=== PATIENT | female | born 1995 | race Caucasian/White ===

== ENCOUNTER 2019-12-01 18:40 | Outpatient (CLI) | payer OTHER ==
[2019-12-01] MEDS ORDERED: HYDROXYZINE PAMOATE 50 MG CAPSULE PO ONE (19:15)
[2019-12-01] MEDS ORDERED: RINGERS SOLUTION,LACTATED 1,000 ML IV ONE (19:15)
[2019-12-01] MEDS ORDERED: HYDROXYZINE PAMOATE 50 MG CAPSULE ONE (19:17)
[2019-12-01] MEDS ORDERED: TERBUTALINE SULFATE INJ/PF 1 MG/1 ML SDV ONE (20:38)
[2019-12-01] MEDS ORDERED: TERBUTALINE SULFATE INJ/PF 1 MG/1 ML SDV SUBCUT ONE (20:38)
[2019-12-01 21:24] LABS: APPEARANCE,URINE CLEAR; BILIRUBIN,URINE NEGATIVE (NEGATIVE); COLOR,URINE YELLOW; GLUCOSE, URINE NEGATIVE (NEGATIVE); KETONES,URINE 80 mg/dL (NEGATIVE); LEUKOCYTE ESTERASE,URINE NEGATIVE (NEGATIVE); NITRITE,URINE NEGATIVE (NEGATIVE); PROTEIN,URINE 30 mg/dL (NEGATIVE); URINE SPECIFIC GRAVITY 1.013
--- NOTE | 2019-12-01 21:43 | Non Stress Test Report ---
Non Stress Test Datetime Report Generated by CPN: 12/01/2019 21:43 DEMOGRAPHIC EGA NST: 34.1 INDICATION Indication for Study (NST) Other: LC- contractions, back pain MONITORING Monitor Explained: Monitor Explained; Test Explained; Patient Verbalized Understanding Time on Monitor: 12/01/2019 18:56 Time off Monitor: 12/01/2019 21:32 NST Duration: 156 NST INTERVENTIONS NST Interventions: PO Hydration; IV Fluids; Meal Given; Reposition Patient Physician Notified NST: Alonzo BABY A: [id number] BABY A Movement : Present Contraction Frequency : 2-10 FHR Baseline : 135 Accelerations : 15X15 Decelerations : None Variability : Moderate 6-25bpm NST Review: Meets Criteria for Reactive NST NST Review and Verified By : Brian Montano RN NST Results: Reactive NST REPORT Report Trigger: Send Report
[2019-12-01 21:50] LABS: URINE AMPHETAMINES SCREEN NEGATIVE; URINE BARBITURATES SCREEN NEGATIVE; URINE BENZODIAZEPINES SCREEN NEGATIVE; URINE COCAINE SCREEN NEGATIVE; URINE MARIJUANA (THC) SCREEN NEGATIVE; URINE METHADONE SCREEN NEGATIVE; URINE PHENCYCLIDINE SCREEN NEGATIVE
== END 2019-12-01 21:39 | disposition home or self-care (01) ==
LOC: LC 18:40
PROVIDERS: ATTEND Student in an Organized Health Care Education/Training Program
DX: O47.03 False labor before 37 completed weeks of gestation, third trimester (principal); Z3A.34 34 weeks gestation of pregnancy
CPT/HCPCS: 59025; 94760; 81001; 80307; J3105

== ENCOUNTER 2019-12-22 20:28 | Outpatient (CLI) | payer OTHER ==
[2019-12-22] MEDS ORDERED: RINGERS SOLUTION,LACTATED 1,000 ML IV ONE (21:01)
[2019-12-22] MEDS ORDERED: RINGERS SOLUTION,LACTATED 1,000 ML IV PRN (21:01)
[2019-12-22 21:43] LABS: APPEARANCE,URINE CLEAR; BILIRUBIN,URINE NEGATIVE (NEGATIVE); COLOR,URINE STRAW; GLUCOSE, URINE 150 mg/dL (NEGATIVE); KETONES,URINE NEGATIVE (NEGATIVE); LEUKOCYTE ESTERASE,URINE NEGATIVE (NEGATIVE); NITRITE,URINE NEGATIVE (NEGATIVE); PROTEIN,URINE NEGATIVE (NEGATIVE); URINE SPECIFIC GRAVITY 1.004; UROBILINOGEN,URINE NEGATIVE mg/dL (<2.0)
[2019-12-22] MEDS ORDERED: TERBUTALINE SULFATE INJ/PF 1 MG/1 ML SDV ONE (21:43)
[2019-12-22 21:58] LABS: URINE AMPHETAMINES SCREEN NEGATIVE; URINE BARBITURATES SCREEN NEGATIVE; URINE BENZODIAZEPINES SCREEN NEGATIVE; URINE COCAINE SCREEN NEGATIVE; URINE MARIJUANA (THC) SCREEN NEGATIVE; URINE METHADONE SCREEN NEGATIVE; URINE PHENCYCLIDINE SCREEN NEGATIVE
[2019-12-22] MEDS ORDERED: TERBUTALINE SULFATE INJ/PF 1 MG/1 ML SDV SUBCUT ONE (22:00)
--- NOTE | 2019-12-22 23:08 | Non Stress Test Report ---
Non Stress Test Datetime Report Generated by CPN: 12/22/2019 23:08 DEMOGRAPHIC EGA NST: 37.1 INDICATION Indication for Study (NST) Other: Gestational age greater than 32 weeks VITAL SIGNS Temperature - NST: 98.1 Pulse - NST: 110 RESP - NST: 17 NBPSYS NST: 125 NBPDIA NST: 76 MONITORING Monitor Explained: Monitor Explained; Test Explained; Patient Verbalized Understanding Time on Monitor: 12/22/2019 20:40 Time off Monitor: 12/22/2019 23:02 NST Duration: 142 NST INTERVENTIONS NST Interventions: PO Hydration; IV Fluids; Reposition Patient Physician Notified NST: DrMark AnthonyRosado BABY A: [id number] BABY A Movement : Present Contraction Frequency : irregular, 2-4 (stopped with terbutaline) FHR Baseline : 135 Accelerations : 15X15 Decelerations : None Variability : Moderate 6-25bpm NST Review: Meets Criteria for Reactive NST NST Review and Verified By : Brian Montano RN NST Results: Reactive NST REPORT Report Trigger: Send Report
== END 2019-12-22 23:09 | disposition home or self-care (01) ==
LOC: LC 20:28
PROVIDERS: ATTEND Student in an Organized Health Care Education/Training Program
PROC: 4A1HXCZ Monitoring of Products of Conception, Cardiac Rate, External Approach (ICD-10-PCS; principal; 2019-12-22)
DX: O47.1 False labor at or after 37 completed weeks of gestation (principal); Z3A.37 37 weeks gestation of pregnancy
CPT/HCPCS: 59025; 81005; 80307; J3105

== ENCOUNTER 2020-01-04 15:28 | Inpatient (IN) | payer OTHER ==
[~2020-01-04 15:28] MED LIST: SUCCINYLCHOLINE CHLORIDE INJ 200 MG/10 ML VIAL ONE
[2020-01-04] MEDS ORDERED: DEXTROSE 5%-LACTATED RINGERS 1,000 ML IV PRN (15:50)
[2020-01-04] MEDS ORDERED: CEFAZOLIN 1 GM/D5W RTU 2 GM/100 ML RTUPB IV ONE (16:02)
[2020-01-04] MEDS ORDERED: CITRIC ACID/SODIUM CITRATE ORAL SOLN 15 ML UDCUP ONE (16:02)
--- NOTE | 2020-01-04 16:16 | Admission Physical ---
Datetime Report Generated by CPN: 01/04/2020 16:16 CURRENT ADMISSION Hx Assessment: The History has been Reviewed and is Current Chief Complaint: Uterine Contractions Indication for Induction: Not Applicable Admit Impression : Term, Intrauterine Admit Impression- Other: Cat 3 strip, lates, absent variability Admit Plan: Initiate Section Protocol ALLERGIES Medication Allergies: Yes Medication Allergies: morphine (12/22/2019) Latex: No Latex Allergies Food Allergies: none Environmental Allergies: none OBSTETRICAL HISTORY EDC: 01/11/2020 00:00 : 1 Para: 0 Term: 0 : 0 SAB: 0 IAB: 0 Ectopic: 0 Livin Cesareans: 0 VBACs: 0 Multiple Births: 0 Gestational Diabetes: No Rh Sensitization: No Incompetent Cervix: No JENNIFER: No Infertility: No ART Treatment: No Uterine Anomaly: No IUGR: No Hx Previous C/S: No Macrosomia: No Hx Loss/Stillborn: No PIH: No Hx : No Placenta Previa/Abruption: No Depression/PP Depression: No PTL/PROM: No Post Hemorrhage: No Obstetrical History Comments: G1: current SEE RECORDS Alcohol: No Marijuana : No Cocaine: No Other Illicit Drugs: No Cigarettes: Never Smoker. 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 Heart Disease: No Hosp/Surgery: Yes Autoimmune Disorder: No Anesthetic Complications: No Kidney Disease: No Abnormal Pap Smear: No Neuro/Epilepsy: No Psychiatric Disorders: No Other Medical Diseases: No Hepatitis/Liver Disease: No Significant Family History: No Varicosities/Phlebitis: No Trauma/Violence : No Thyroid Dysfunction: No Medical History Comments: hypotension, 3 spinal transfusion, total 6 back surgeries, ostomy bag and g-tube in past INFECTIOUS HISTORY Gonorrhea: No Genital Herpes: No Chlamydia: No Tuberculosis: No Syphilis: No Hepatitis: No HIV/AIDS Exposure: No Rash or Viral Illness: No HPV: No PHYSICAL EXAM General: Normal HEENT: Normal Neurologic: Normal Thyroid: Normal Heart: Normal Lungs: Normal Breast: Normal Back: Normal Abdomen: Normal Genitourinary Exam: Normal Extremities: Normal DTRs: Normal Pelvic Type: Adequate Physical Exam Comments: GBS neg Back surgery, L4-S1 fused, 2 rods in back, triangular plate with 3 screws, no spinal or epidural C/S scheduled for 01/07/2020 Hx of illeostomy from complications of back surgery Vital Signs: Reviewed VAGINAL EXAM Dilatation: FT Effacement: 90 Station: 0 MEMBRANES Membranes: Intact FETUS A EGA: 39.0 Monitoring: External US Variability: Absent - Undetectable Accelerations: Absent Decelerations: Late Admit Comment: Admitted to with c/o of uc's q 2 min, placed on monitor, absent variability with late decelerations, IV D5LR started,O2 via mask, Dr. Tipton notified of Cat 3 strip, Dr. Tipton at , C/S called, talked with family, prepearations started for C/S, Dr. Tipton consulted General surgery and anesthesia due to prior back surgery and complications and with adhesions to bowel. Ancef 2 Gms PLANS FOR LABOR AND DELIVERY Labor and Delivery: None Pain Management: Medications Feeding Preference: Breast Benefit of Breast Feed Discussed: Yes Circumcision: N/A INFORMED CONSENT Assignment: Cecilia Tipton MD Signature: with User ID: [email or web address] : with User ID: [email or web address]
[2020-01-04 16:27] LABS: APPEARANCE,URINE CLEAR; BILIRUBIN,URINE NEGATIVE (NEGATIVE); COLOR,URINE YELLOW; GLUCOSE, URINE NEGATIVE (NEGATIVE); KETONES,URINE NEGATIVE (NEGATIVE); LEUKOCYTE ESTERASE,URINE NEGATIVE (NEGATIVE); NITRITE,URINE NEGATIVE (NEGATIVE); PROTEIN,URINE NEGATIVE (NEGATIVE); URINE SPECIFIC GRAVITY 1.005; UROBILINOGEN,URINE NEGATIVE mg/dL (<2.0)
[2020-01-04] MEDS ORDERED: OXYTOCIN 10 UNIT/ML VIAL ONE (16:40)
[2020-01-04] MEDS ORDERED: ONDANSETRON HCL INJ/PF 4 MG/2 ML SDV ONE (16:40)
[2020-01-04] MEDS ORDERED: FENTANYL CITRATE INJ/PF 250 MCG/5 ML AMPULE ONE (16:40)
[2020-01-04] MEDS ORDERED: MIDAZOLAM 2 MG/2 ML INJ ONE (16:40)
[2020-01-04] MEDS ORDERED: MISOPROSTOL 0.2 MG TABLET ONE (16:53)
[2020-01-04] MEDS ORDERED: CARBOPROST TROMETHAMINE INJ 250 MCG/1 ML AMPULE ONE (16:54)
[2020-01-04] MEDS ORDERED: OXYCODONE-ACETAMINOPHEN 5-325 MG TABLET PO PRN ×4 (16:54→17:35)
[2020-01-04] MEDS ORDERED: ONDANSETRON HCL INJ/PF 4 MG/2 ML SDV IV PRN (16:54)
[2020-01-04] MEDS ORDERED: FENTANYL CITRATE INJ/PF 100 MCG/2 ML AMPUL IV PRN ×3 (16:54)
[2020-01-04] MEDS ORDERED: MEPERIDINE HCL/PF INJ 25 MG/1 ML DISP.SYRIN IV PRN (16:54)
[2020-01-04] MEDS ORDERED: PROMETHAZINE HCL INJ 25 MG/1 ML VIAL IV PRN ×3 (16:54→17:35)
[2020-01-04] MEDS ORDERED: METHYLERGONOVINE MALEATE INJ/PF 0.2 MG/1 ML AMPULE ONE (16:54)
[2020-01-04 16:55] LABS: URINE AMPHETAMINES SCREEN NEGATIVE; URINE BARBITURATES SCREEN NEGATIVE; URINE BENZODIAZEPINES SCREEN NEGATIVE; URINE COCAINE SCREEN NEGATIVE; URINE MARIJUANA (THC) SCREEN NEGATIVE; URINE METHADONE SCREEN NEGATIVE; URINE PHENCYCLIDINE SCREEN NEGATIVE
[2020-01-04] MEDS ORDERED: ACETAMINOPHEN 1,000 MG/100 ML RTUPB IV ONE (17:31)
[2020-01-04] MEDS ORDERED: MEASLES,MUMPS&RUBELLA VACC/PF 0.5 ML VIAL SUBCUT PRN (17:35)
[2020-01-04] MEDS ORDERED: DIPH/PERTUSS(ACELL)/TETANUS VAC/PF 0.5 ML SYR (>=10YO) IM PRN (17:35)
[2020-01-04] MEDS ORDERED: ACETAMINOPHEN 325 MG TABLET PO PRN (17:35)
[2020-01-04] MEDS ORDERED: ACETAMINOPHEN 1,000 MG/100 ML RTUPB IV PRN (17:35)
[2020-01-04] MEDS ORDERED: RINGERS SOLUTION,LACTATED 1,000 ML IV PRN (17:35)
[2020-01-04] MEDS ORDERED: OXYTOCIN/NORMAL SALINE 20 UNIT/1,000 ML RTUINJ IV PRN (17:35)
[2020-01-04] MEDS ORDERED: SIMETHICONE 80 MG TAB.CHEW PO PRN (17:35)
[2020-01-04] MEDS ORDERED: HYDROMORPHONE HCL INJ/PF 2 MG/ML AMPULE ONE (17:37)
--- NOTE | 2020-01-04 17:41 | Operative Report ---
Operative Report DATE OF SURGERY: 01/04/20 PREOPERATIVE DIAGNOSIS: IUP at 39 weeks gestation nonreassuring heart ton es multiple previous abdominal surgeries multiple back surgeries with hardware POSTOPERATIVE DIAGNOSIS: Same OPERATION: Primary low transverse hysterotomy section SURGEON: JUDITH PACKER ANESTHESIA: GA COMPLICATIONS: None INTRAOPERATIVE FINDINGS: Female infant cephalic presentation Apgars 1, 6, 7 and 7. Nuchal cord x5 around neck, meconium present, adhesions of the peritoneal cavity. PROCEDURE: PROCEDURE IN DETAIL: The patient was taken to the operating room, prepared and draped in a normal sterile fashion in a supine position with a leftward tilt. A transverse skin incision was made with a scalpel and carried through to the underlying layer of fascia with the same scalpel. The fascia was excised in the midline and extended laterally with Zachariah. The fascia was then dissected from the rectus muscle sharply with Zachariah and the rectus muscle was divided and the peritoneal cavity was entered sharply with the same Metzenbaum. With good visualization of the bladder and the uterus the bladder blade was inserted. The hysterotomy was nicked with a scalpel and extended laterally with surgeon finger fraction. The infant was then delivered atraumatically. The nose and mouth were suctioned with a suction bulb, the cord was clamped and cut and was handed off to awaiting pediatricians. The placenta was removed manually. The uterus was exteriorized and cleared of clots and debris. The hysterotomy was closed with 0 Monocryl in a running, locked fashion. A second layer of the same suture was used to imbricate to ensure hemostasis. The uterus was returned to the abdomen and peritoneal cavity was cleared of clots and debris. The Interceed was placed along the hysterotomy to prevent future adhesions. the rectus muscle and peritoneum were repaired with mattress stitch of 2-0 Chromic. The fascia was closed with 0-Vicryl. The subcutaneous layer was closed with plain catgut and the skin was closed with 4-0 Vicryl. The patient tolerated the procedure well. Sponge, lap, and needle counts correct x2 and the patient was taken to recovery in stable condition.
[2020-01-04 17:45] LABS: ABSOLUTE BASOPHILS # (AUTO) 0.1 10^3/uL (0.0-0.2); ABSOLUTE EOSINOPHILS # (AUTO) 0.1 10^3/uL (0.0-0.6); ABSOLUTE LYMPHOCYTES (AUTO) 1.5 10^3/uL (0.5-4.7); ABSOLUTE MONOCYTES (AUTO) 1.1 10^3/uL (0.1-1.4); ABSOLUTE NEUT (AUTO) 13.4 10^3/uL (1.7-8.2); BASOPHILS % (AUTO) 0.3 % (0-2); EOSINOPHILS % (AUTO) 0.6 % (0-6); HEMATOCRIT 36.9 % (36.0-47.0); HEMOGLOBIN 12.3 g/dL (12.0-15.5); LYMPHOCYTES % (AUTO) 9.3 % (13-45); MEAN CORPUSCULAR HEMOGLOBIN 28.2 pg (27.0-33.4); MEAN CORPUSCULAR HGB CONC 33.4 g/dL (32.0-36.0); MEAN CORPUSCULAR VOLUME 85 fl (80-97); MONOCYTES % (AUTO) 6.6 % (3-13); PLATELET COUNT 249 10^3/uL (150-450); RED BLOOD COUNT 4.37 10^6/uL (3.72-5.28); RED CELL DISTRIBUTION WIDTH 14.6 % (11.5-14.0); SEGMENTED NEUTROPHILS % (AUTO) 83.2 % (42-78); TOTAL CELLS COUNTED % (AUTO) 100 %; WHITE BLOOD COUNT 16.1 10^3/uL (4.0-10.5)
[2020-01-04] MEDS ORDERED: AMPICILLIN SOD/SULBACTAM 3 GM VIAL IV SCH (17:45)
[2020-01-04] MEDS ORDERED: DIPHENHYDRAMINE HCL 50 MG/ML VIAL ONE (17:48)
[2020-01-04] MEDS ORDERED: PROPOFOL INJ 200 MG/20 ML VIAL IV ONE (17:48)
[2020-01-04] MEDS: DIPHENHYDRAMINE HCL 50 MG/ML VIAL IV PRN ×3 (17:48→22:27)
[2020-01-04 17:57] LABS: HEMATOCRIT 34.5 % (36.0-47.0); HEMOGLOBIN 11.6 g/dL (12.0-15.5); MEAN CORPUSCULAR HEMOGLOBIN 28.7 pg (27.0-33.4); MEAN CORPUSCULAR HGB CONC 33.7 g/dL (32.0-36.0); MEAN CORPUSCULAR VOLUME 85 fl (80-97); PLATELET COUNT 277 10^3/uL (150-450); RED BLOOD COUNT 4.06 10^6/uL (3.72-5.28); RED CELL DISTRIBUTION WIDTH 14.8 % (11.5-14.0); WHITE BLOOD COUNT 22.3 10^3/uL (4.0-10.5)
[2020-01-04] MEDS ORDERED: NORMAL SALINE 250 ML IV PRN ×2 (18:08→18:23)
[2020-01-04] MEDS ORDERED: FENTANYL CITRATE INJ/PF 100 MCG/2 ML AMPUL ONE (18:34)
[2020-01-04 18:39] LABS: ALBUMIN 3.2 g/dL (3.5-5.0); ALKALINE PHOSPHATASE 224 U/L (38-126); ANION GAP 13 (5-19); ASPARTATE AMINO TRANSFERASE 27 U/L (14-36); BILIRUBIN,DIRECT 0.5 mg/dL (0.0-0.4); BILIRUBIN,TOTAL 0.9 mg/dL (0.2-1.3); BLOOD UREA NITROGEN 6 mg/dL (7-20); CALCIUM 8.7 mg/dL (8.4-10.2); CARBON DIOXIDE 20 mmol/L (22-30); CHLORIDE 102 mmol/L (98-107); GLUCOSE 115 mg/dL (75-110); POTASSIUM 3.7 mmol/L (3.6-5.0); TOTAL PROTEIN 6.3 g/dL (6.3-8.2)
[2020-01-04 18:45] LABS: INTERNATIONAL RATION (INR) 0.97; PROTHROMBIN TIME 12.9 SEC (11.4-15.4)
[2020-01-04 18:46] LABS: FIBRINOGEN 476 mg/dL (209-497); PARTIAL THROMBOPLASTIN TIME 26.6 SEC (23.5-35.8)
--- NOTE | 2020-01-04 19:36 | Warning Signs in Babies ---
VOD Warning Signs Datetime Report Generated by [facility]: 01/04/2020 19:36 VOD#608 -Warning Signs in Babies: Needs to be viewed. (12/01/2019 18:52:Alisha Mohamud RN)
--- NOTE | 2020-01-04 19:39 | Delivery Summary ---
Del Sum A-C Datetime Report Generated by CPN: 01/04/2020 19:38 DELIVERY PERSONNEL DELIVERY PERSONNEL: [id number] Delivery Doctor:: Cecilia Tipton MD Anesthesiologist:: Riccardo Henry MD BUSINESS ACCOUNT SPECIALIST:: Jason Carlos CRNA Assistant Quality Manager:: Alisha Mohamud RN Neonatal Nurse Practitioner:: RAFAEL Baez Nursery Nurse:: Lianet Streeter RN Hot Tar Roofer Helper/INDUSTRIAL AUTOMATION SPECIALIST: Ericka Merrill CST Hot Tar Roofer Helper/INDUSTRIAL AUTOMATION SPECIALIST: Delmi Kumar, CLERK CASHIER MATERNAL INFORMATION Delivery Anesthesia: General Medications After Delivery: Pitocin Drip 20 Units/1000ml NSS Delivery QBL: 2718 Maternal Complications: Hemorrhage LABOR SUMMARY EDC: 01/11/2020 00:00 No. Babies in Womb: 1 Attempted: No Labor Anesthesia: None LABOR INFORMATION Reason for Induction: Not Applicable Oxytocin: N/A Group B Beta Strep: NEGATIVE Antibiotics # of Doses: 1 Antibiotics Time of Last Dose: 1633 Name of Antibiotic Given: Ancef Steroids Given: None Reason Steroids Not Administered: Not Applicable MEMBRANES Membranes Rupture Method: Spontaneous Rupture of Membranes: 01/04/2020 16:48 Length of Rupture (hr): 0.08 Amniotic Fluid Color: Moderate Meconium Amniotic Fluid Amount: Moderate STAGES OF LABOR Stage 3 hr: 0 Stage 3 min: 1 VAGINAL DELIVERY Episiotomy: None Laceration #1: None Laceration Extension #1: N/A Laceration Repair: Not Applicable Sponge Count Correct: N/A Sharps Count Correct: N/A CSECTION DELIVERY Primary Indication: Nonreassuring Status CSection Urgency: Emergency CSection Incidence: Primary Labor: Labor Elective: Nonelective CSection Incision: Lower Uterine Transverse BABY A INFORMATION Delivery Date/Time: 01/04/2020 16:53 Method of Delivery: Born in Route : No : N/A Forceps: N/A Vacuum Extraction: N/A Shoulder Dystocia : No PRESENTATION/POSITION BABY A Presentation: Cephalic Cephalic Presentation: Vertex Breech Presentation: N/A PLACENTA INFORMATION BABY A Placenta Delivery Time : 01/04/2020 16:54 Placenta Method of Delivery: Manual Removal Placenta Status: Delivered SCORES BABY A Heart Rate 1 min: Slow, Below 100 bpm Resp Effort 1 min: Absent Reflex Irritability 1 min: No Response Muscle Tone 1 min: Flaccid Color 1 min: Blue/Pale Resuscitation Effort 1 min: Tactile Stimulation; Oxygen; PPV/NCPAP SCORE 1 MIN: 1 Heart Rate 5 min: >100 bpm Resp Effort 5 min: Slow, Irregular Reflex Irritability 5 min: Grimace Muscle Tone 5 min: Some Flexion of Extremities Color 5 min: Body Farner, Extremities Blue Resuscitation Effort 5 min: Tactile Stimulation; Oxygen; PPV/NCPAP SCORE 5 MIN: 6 INFANT INFORMATION BABY A Gestational Age at Delivery: 39.0 Gestational Status: Full Term- 39- 40.6 Weeks Outcome : Liveborn Condition : Fair Sex: Female IDENTIFICATION BABY A Verification Date/Time: 01/04/2020 17:04 ID Band Number: [id number] Mother's Name Verified: Yes RN Verifying : Claire Lopez RN, Leslie Celestin RN WEIGHT/LENGTH BABY A Infant Birthweight (gm): 3105 Infant Weight (lb): 6 Weight (oz): 14 Infant Length (in): 21.25 Length (cm): 53.98 CORD INFORMATION BABY A No. Cord Vessels: 3 Nuchal Cord : Around neck x5, tight Cord Blood Taken: No-Annotate Suction: Mouth; Nose BABY B INFORMATION : N/A
[2020-01-04] MEDS: DOCUSATE SODIUM 100 MG CAPSULE PO SCH (21:26)
[2020-01-04] MEDS: KETOROLAC TROMETHAMINE INJ/PF 30 MG/1 ML SDV IV SCH (21:42)
[2020-01-04] MEDS: HYDROMORPHONE HCL INJ/PF 2 MG/ML AMPULE IV PRN (21:43)
[2020-01-04 21:56] LABS: HEMATOCRIT 32.3 % (36.0-47.0); MEAN CORPUSCULAR HEMOGLOBIN 28.9 pg (27.0-33.4); MEAN CORPUSCULAR VOLUME 85 fl (80-97); PLATELET COUNT 229 10^3/uL (150-450); RED BLOOD COUNT 3.79 10^6/uL (3.72-5.28); RED CELL DISTRIBUTION WIDTH 15.2 % (11.5-14.0); WHITE BLOOD COUNT 22.4 10^3/uL (4.0-10.5)
[2020-01-05] MEDS: KETOROLAC TROMETHAMINE INJ/PF 30 MG/1 ML SDV IV SCH ×2 (02:48→09:40)
[2020-01-05] MEDS: HYDROMORPHONE HCL INJ/PF 2 MG/ML AMPULE IV PRN (04:01)
[2020-01-05] MEDS: DIPHENHYDRAMINE HCL 50 MG/ML VIAL IV PRN ×2 (04:02→13:26)
[2020-01-05 07:08] LABS: HEMATOCRIT 26.2 % (36.0-47.0); MEAN CORPUSCULAR HEMOGLOBIN 28.9 pg (27.0-33.4); MEAN CORPUSCULAR HGB CONC 33.7 g/dL (32.0-36.0); MEAN CORPUSCULAR VOLUME 86 fl (80-97); PLATELET COUNT 199 10^3/uL (150-450); RED BLOOD COUNT 3.05 10^6/uL (3.72-5.28); RED CELL DISTRIBUTION WIDTH 14.7 % (11.5-14.0); WHITE BLOOD COUNT 15.5 10^3/uL (4.0-10.5)
[2020-01-05 07:09] LABS: HEMOGLOBIN 8.8 g/dL (12.0-15.5)
[2020-01-05] MEDS: DOCUSATE SODIUM 100 MG CAPSULE PO SCH ×2 (09:40→17:12)
[2020-01-05] MEDS: PRENATAL VITAMIN W DHA CAPSULE PO SCH (09:40)
--- NOTE | 2020-01-05 10:52 | PDOC PROGRESS REPORT ---
Subjective-OB Progress Note for:: 01/05/20 Subjective: Pt doing well, reports voiding without difficulty, reg diet and + flatus. Baby was sent to [facility] last night, pt states baby is doing okay. Physical Exam (OB) Vital Signs: Temp Pulse Resp BP Pulse Ox 97.9 F 86 15 103/65 100 01/05/20 07:39 01/05/20 07:39 01/05/20 07:39 01/05/20 07:39 01/05/20 07:39 Intake & Output 01/04/20 01/05/20 01/06/20 06:59 06:59 06:59 Intake Total 770 100 Output Total 427 Balance 343 100 Weight 69.5 kg - PIH/Pre-Eclampsia Epigastric Pain: No Visual Changes: No - Dressing Removed: No - opsite with scant old shadow drainage present Incision: Dressing Closure Type: opsite - Lochia Lochia Amount: Small 10-25 ml Lochia Color: Rubra/Red - Abdomen Description: Soft, Round Hernia Present: No Fundal Description: Firm, Midline Fundal Height: u/u - u/2 Objective-Diagnostic Laboratory: 01/05/20 06:34 01/04/20 17:50 01/04/20 01/04/20 01/04/20 15:34 16:11 16:11 WBC 16.1 H RBC 4.37 Hgb 12.3 Hct 36.9 MCV 85 MCH 28.2 MCHC 33.4 RDW 14.6 H Plt Count 249 Seg Neutrophils % 83.2 H Sodium Potassium Chloride Carbon Dioxide Anion Gap BUN Creatinine Est GFR ( Amer) Glucose Calcium Total Bilirubin AST Alkaline Phosphatase Total Protein Albumin Urine Color YELLOW Urine Appearance CLEAR Urine pH 7.0 Ur Specific [place] 1.005 Urine Protein NEGATIVE Urine Glucose (UA) NEGATIVE Urine Ketones NEGATIVE Urine Blood NEGATIVE Urine Nitrite NEGATIVE Ur Leukocyte Esterase NEGATIVE Blood Type O POSITIVE Antibody Screen NEGATIVE 01/04/20 01/04/20 01/04/20 17:50 17:50 21:45 WBC 22.3 H 22.4 H RBC 4.06 3.79 Hgb 11.6 L 11.0 L Hct 34.5 L 32.3 L MCV 85 85 MCH 28.7 28.9 MCHC 33.7 34.0 RDW 14.8 H 15.2 H Plt Count 277 229 Seg Neutrophils % Sodium 135.2 L Potassium 3.7 Chloride 102 Carbon Dioxide 20 L Anion Gap 13 BUN 6 L Creatinine 0.38 L Est GFR ( Amer) > 60 Glucose 115 H Calcium 8.7 Total Bilirubin 0.9 AST 27 Alkaline Phosphatase 224 H Total Protein 6.3 Albumin 3.2 L Urine Color Urine Appearance Urine pH Ur Specific [place] Urine Protein Urine Glucose (UA) Urine Ketones Urine Blood Urine Nitrite Ur Leukocyte Esterase Blood Type Antibody Screen 01/05/20 06:34 WBC 15.5 H RBC 3.05 L Hgb 8.8 L D Hct 26.2 L MCV 86 MCH 28.9 MCHC 33.7 RDW 14.7 H Plt Count 199 Seg Neutrophils % Sodium Potassium Chloride Carbon Dioxide Anion Gap BUN Creatinine Est GFR ( Amer) Glucose Calcium Total Bilirubin AST Alkaline Phosphatase Total Protein Albumin Urine Color Urine Appearance Urine pH Ur Specific [place] Urine Protein Urine Glucose (UA) Urine Ketones Urine Blood Urine Nitrite Ur Leukocyte Esterase Blood Type Antibody Screen Assessment and Plan(PN) - Assessment and Plan (1) heart rate non-reassuring affecting management of mother Is this a current diagnosis for this admission?: Yes (2) History of back surgery Is this a current diagnosis for this admission?: Yes (3) S/P primary low transverse Is this a current diagnosis for this admission?: Yes - Time Spent with Patient Time with patient: Less than 15 minutes Medications reviewed and adjusted accordingly: Yes - Disposition Anticipated Discharge: Home Within: within 24 hours
[2020-01-05] MEDS ORDERED: NORMAL SALINE 250 ML IV PRN (11:00)
[2020-01-05] MEDS: IBUPROFEN 800 MG TABLET PO SCH ×2 (15:12→20:12)
[2020-01-05] MEDS ORDERED: ZOLPIDEM TARTRATE 5 MG TABLET PO SCH (22:00)
[2020-01-06] MEDS: IBUPROFEN 800 MG TABLET PO SCH ×2 (04:22→09:55)
[2020-01-06 07:24] LABS: HEMATOCRIT 28.2 % (36.0-47.0); HEMOGLOBIN 9.7 g/dL (12.0-15.5); MEAN CORPUSCULAR HEMOGLOBIN 29.5 pg (27.0-33.4); MEAN CORPUSCULAR HGB CONC 34.3 g/dL (32.0-36.0); MEAN CORPUSCULAR VOLUME 86 fl (80-97); PLATELET COUNT 215 10^3/uL (150-450); RED BLOOD COUNT 3.27 10^6/uL (3.72-5.28); RED CELL DISTRIBUTION WIDTH 14.9 % (11.5-14.0); WHITE BLOOD COUNT 13.9 10^3/uL (4.0-10.5)
[2020-01-06] MEDS: DOCUSATE SODIUM 100 MG CAPSULE PO SCH (09:55)
[2020-01-06] MEDS: PRENATAL VITAMIN W DHA CAPSULE PO SCH (09:55)
[2020-01-06 10:51] VITALS: BP 104/60
--- NOTE | 2020-01-06 11:02 | PDOC DISCHARGE SUMMARY ---
Impression - Admit/DC Date/PCP Admission Date/Primary Care Provider: 01/04/20 15:59 JALEEL PATRICIO MD Discharge Date: 01/06/20 - POD #2, pt doing well, desires discharge home so she can go down to [facility] where baby girl was transferred down to. Pt states baby grier s improved and doing well. She is pumping. O+, Rubella Immune - Additional Information Resuscitation Status: Full Code Discharge Diet: As Tolerated, Regular Discharge Activity: Activity As Tolerated, No Driving, No Lifting Over 10 Pounds, Pelvic Rest Referrals: JALEEL PATRICIO MD [Primary Care Provider] - Prescriptions: Ibuprofen [Motrin 800 mg Tablet] 800 mg PO Q6A #60 tablet Oxycodone HCl/Acetaminophen [Percocet 5-325 mg Tablet] 1 tab PO Q4HP PRN #30 tablet PRN Reason: Pain Scale Of 4 Home Medications: Vit,Calc76/Iron/Folic [Prenatabs Rx Tablet] 1 tab PO DAILY 12/22/19 Ibuprofen [Motrin 800 mg Tablet] 800 mg PO Q6A #60 tablet 01/06/20 Oxycodone HCl/Acetaminophen [Percocet 5-325 mg Tablet] 1 tab PO Q4HP PRN #30 tablet 01/06/20 HPI Reason(s) for Admission: Ceasarean Section-Primary Procedures: Ultrasound Intrapartum Procedure(s): : Low Cervical, Transverse Results Laboratory Results: WBC 13.9 10^3/uL (4.0-10.5) H 01/06/20 07:07 RBC 3.27 10^6/uL (3.72-5.28) L 01/06/20 07:07 Hgb 9.7 g/dL (12.0-15.5) L 01/06/20 07:07 Hct 28.2 % (36.0-47.0) L 01/06/20 07:07 MCV 86 fl (80-97) 01/06/20 07:07 MCH 29.5 pg (27.0-33.4) 01/06/20 07:07 MCHC 34.3 g/dL (32.0-36.0) 01/06/20 07:07 RDW 14.9 % (11.5-14.0) H 01/06/20 07:07 Plt Count 215 10^3/uL (150-450) 01/06/20 07:07 Lymph % (Auto) 9.3 % (13-45) L 01/04/20 16:11 [place] % (Auto) 6.6 % (3-13) 01/04/20 16:11 Eos % (Auto) 0.6 % (0-6) 01/04/20 16:11 Baso % (Auto) 0.3 % (0-2) 01/04/20 16:11 Absolute Neuts (auto) 13.4 10^3/uL (1.7-8.2) H 01/04/20 16:11 Absolute Lymphs (auto) 1.5 10^3/uL (0.5-4.7) 01/04/20 16:11 Absolute Monos (auto) 1.1 10^3/uL (0.1-1.4) 01/04/20 16:11 Absolute Eos (auto) 0.1 10^3/uL (0.0-0.6) 01/04/20 16:11 Absolute Basos (auto) 0.1 10^3/uL (0.0-0.2) 01/04/20 16:11 Seg Neutrophils % 83.2 % (42-78) H 01/04/20 16:11 PT 12.9 SEC (11.4-15.4) 01/04/20 18:25 INR 0.97 01/04/20 18:25 APTT 26.6 SEC (23.5-35.8) 01/04/20 18:25 Fibrinogen 476 mg/dL (209-497) 01/04/20 18:25 Sodium 135.2 mmol/L (137-145) L 01/04/20 17:50 Potassium 3.7 mmol/L (3.6-5.0) 01/04/20 17:50 Chloride 102 mmol/L (98-107) 01/04/20 17:50 Carbon Dioxide 20 mmol/L (22-30) L 01/04/20 17:50 Anion Gap 13 (5-19) 01/04/20 17:50 BUN 6 mg/dL (7-20) L 01/04/20 17:50 Creatinine 0.38 mg/dL (0.52-1.25) L 01/04/20 17:50 Est GFR ( Amer) > 60 (>60) 01/04/20 17:50 Est GFR (MDRD) Non-Af > 60 (>60) 01/04/20 17:50 Glucose 115 mg/dL (75-110) H 01/04/20 17:50 Calcium 8.7 mg/dL (8.4-10.2) 01/04/20 17:50 Total Bilirubin 0.9 mg/dL (0.2-1.3) 01/04/20 17:50 Direct Bilirubin 0.5 mg/dL (0.0-0.4) H 01/04/20 17:50 Neonat Total Bilirubin Not Reportable 01/04/20 17:50 Neonat Direct Bilirubin Not Reportable 01/04/20 17:50 Neonat Indirect Bili Not Reportable 01/04/20 17:50 AST 27 U/L (14-36) 01/04/20 17:50 ALT 17 U/L (<35) 01/04/20 17:50 Alkaline Phosphatase 224 U/L (38-126) H 01/04/20 17:50 Total Protein 6.3 g/dL (6.3-8.2) 01/04/20 17:50 Albumin 3.2 g/dL (3.5-5.0) L 01/04/20 17:50 Urine Color YELLOW 01/04/20 15:34 Urine Appearance CLEAR 01/04/20 15:34 Urine pH 7.0 (5.0-9.0) 01/04/20 15:34 Ur Specific [place] 1.005 01/04/20 15:34 Urine Protein NEGATIVE mg/dL (NEGATIVE) 01/04/20 15:34 Urine Glucose (UA) NEGATIVE mg/dL (NEGATIVE) 01/04/20 15:34 Urine Ketones NEGATIVE mg/dL (NEGATIVE) 01/04/20 15:34 Urine Blood NEGATIVE (NEGATIVE) 01/04/20 15:34 Urine Nitrite NEGATIVE (NEGATIVE) 01/04/20 15:34 Urine Bilirubin NEGATIVE (NEGATIVE) 01/04/20 15:34 Urine Urobilinogen NEGATIVE mg/dL (<2.0) 01/04/20 15:34 Ur Leukocyte Esterase NEGATIVE (NEGATIVE) 01/04/20 15:34 Urine Ascorbic Acid NEGATIVE (NEGATIVE) 01/04/20 15:34 Urine Opiates Screen NEGATIVE 01/04/20 15:34 Urine Methadone Screen NEGATIVE 01/04/20 15:34 Ur Barbiturates Screen NEGATIVE 01/04/20 15:34 Ur Phencyclidine Scrn NEGATIVE 01/04/20 15:34 Ur Amphetamines Screen NEGATIVE 01/04/20 15:34 U Benzodiazepines Scrn NEGATIVE 01/04/20 15:34 Urine Cocaine Screen NEGATIVE 01/04/20 15:34 U Marijuana (THC) Screen NEGATIVE 01/04/20 15:34 RPR NONREACTIVE (NONREACTIVE) 01/04/20 16:11 Blood Type O POSITIVE 01/04/20 16:11 Antibody Screen NEGATIVE 01/04/20 16:11 Crossmatch See Detail 01/04/20 16:11 Plan Health Concerns: Post Op care Plan of Treatment: d/c home, follow up w/ [facility] in one week for incision check
== END 2020-01-06 11:15 | disposition home or self-care (01) | DRG 788 ==
LOC: LC 15:28 → LR 15:59 → 2S 20:09
PROVIDERS: ADMIT Obstetrics & Gynecology; ATTEND Obstetrics & Gynecology
PROC: 10D00Z1 Extraction of Products of Conception, Low, Open Approach (ICD-10-PCS; principal; 2020-01-04)
PROC: 30233N1 Transfusion of Nonautologous Red Blood Cells into Peripheral Vein, Percutaneous Approach (ICD-10-PCS; 2020-01-04)
DX: O69.1XX0 Labor and delivery complicated by cord around neck, with compression, not applicable or unspecified (principal); O76 Abnormality in fetal heart rate and rhythm complicating labor and delivery; O77.0 Labor and delivery complicated by meconium in amniotic fluid; O99.62 Diseases of the digestive system complicating childbirth; K66.0 Peritoneal adhesions (postprocedural) (postinfection); Z3A.39 39 weeks gestation of pregnancy; Z37.0 Single live birth; Z98.890 Other specified postprocedural states
CPT/HCPCS: 1961; 36415; 36430; 80053; 80307; 81005; 85025; 85027; 85384; 85610; 85730; 86592; 86850; 86900; 86901; 86920; C1765; J0131; J0330; J0690; J1170; J1200; J1885; J2210; J2250; J2405; J2590; J2704; J3010; J3490; P9016